=== PATIENT | female | born 1955 | race Two or more races ===

== ENCOUNTER 2017-10-16 08:06 | Emergency (ER) | payer BC, OTHER ==
[2017-10-16 08:13] VITALS: BP 162/95; PULSE 84; TEMP 97.4; BMI 25.4
[2017-10-16] MEDS ORDERED: CYCLOBENZAPRINE HCL 10 MG TABLET (FP) PO ONE (08:47)
--- NOTE | 2017-10-16 09:11 | PDOC ---
History of Present Illness - General Chief Complaint: Pain, Acute Stated Complaint: BOTH HIPS AND KNEES HURT Time Seen by Provider: 10/16/17 08:21 History Source: Patient Exam Limitations: No Limitations - History of Present Illness Initial Comments: 10/16/17 09:01 62-year-old female left-handed dominant with past medical history of hypertension presents with body aches. 3 days ago, had a mechanical fall landed on her right hand. At that time, had no pain. She was helped up and the patient was able to her. Since then, the patient on the following day had diffuse body aches. Particularly her bilateral knees and her lower back and right fourth finger at the PIP joint was in discomfort. Denies any numbness or weakness. She had taken 800 mg of ibuprofen this morning and came into the ED. Past History - Past Medical History Allergies/Adverse Reactions: Allergies Allergy/AdvReac Type Severity Reaction Status Date / Time No Known Drug Allergies Allergy Verified 10/16/17 08:08 Home Medications: Ambulatory Orders Cyclobenzaprine HCl [Flexeril -] 10 mg PO TID PRN #21 tablet 10/16/17 Naproxen [Naprosyn -] 500 mg PO BID PRN #20 tablet 10/16/17 Anemia: No Asthma: Yes (SEASONAL-STABLE NO MEDS) Cancer: No Cardiac Disorders: No CVA: No COPD: No CHF: No Dementia: No Diabetes: No GI Disorders: No Disorders: Yes (HYDRO NEPHROSIS) HTN: Yes (DX 2004) Hypercholesterolemia: No Liver Disease: No Seizures: No Thyroid Disease: No - Surgical History Abdominal Surgery: No Appendectomy: No Cardiac Surgery: No Cholecystectomy: No Lung Surgery: No Neurologic Surgery: No Orthopedic Surgery: No - Suicide/Smoking/Psychosocial Hx Smoking Status: Yes Smoking History: Never smoked Have you smoked in the past 12 months: No Number of Cigarettes Smoked Daily: 0 If you are a former smoker, when did you quit?: QUIT AT AGE 26 Information on smoking cessation initiated: No Hx Alcohol Use: No Drug/Substance Use Hx: No Substance Use Type: None Hx Substance Use Treatment: No Review of Systems - Review of Systems Able to Perform ROS?: Yes Comments:: 10/16/17 09:02 GENERAL/CONSTITUTIONAL: No fever, weakness. HEAD, EYES, EARS, NOSE AND THROAT: No change in vision. No ear pain or discharge. No sore throat. CARDIOVASCULAR: No chest pain or shortness of breath. RESPIRATORY: No cough, wheezing, or hemoptysis. GASTROINTESTINAL: No abdominal pain, nausea, vomiting, diarrhea, or decreased PO intolerance. GENITOURINARY: No dysuria, frequency, or change in urination. MUSCULOSKELETAL: =+bilateral knee pain, lower back pain, right 4th finger pain SKIN: No rash NEUROLOGIC: No headache, vertigo, loss of consciousness, or change in strength/ sensation. ENDOCRINE: No increased thirst. No abnormal weight change. HEMATOLOGIC/LYMPHATIC: No anemia, easy bleeding, or history of blood clots. ALLERGIC/IMMUNOLOGIC: No hives or skin allergy. *Physical Exam - Vital Signs Last Vital Signs Temp Pulse Resp BP Pulse Ox 97.4 F L 84 18 162/95 100 10/16/17 08:07 10/16/17 08:07 10/16/17 08:07 10/16/17 08:07 10/16/17 08:07 - Physical Exam Comments: 10/16/17 09:05 GENERAL: Awake, alert, and fully oriented, in no acute distress. HEAD: No signs of trauma EYES: PERRLA, EOMI, sclera anicteric, conjunctiva clear ENT: Auricles normal inspection, hearing grossly normal, nares patent, oropharynx clear without exudates. NECK: Normal ROM, supple, no lymphadenopathy, JVD, or masses LUNGS: Breath sounds equal, clear to auscultation bilaterally. No wheezes, and no crackles HEART: Regular rate and rhythm, normal S1 and S2, no murmurs, rubs or gallops ABDOMEN: Soft, nontender, normoactive bowel sounds. No guarding, no rebound. No masses EXTREMITIES: Normal range of motion, no edema. Ambulatory without difficulty. FROM Bilateral knee, hips, elbows, knees. 2+ distal pulses (radial). TTP right 4th digit PIP joint. Able to flex and extend all digits (including R 4th). Diffuse lower back discomfort (left and right). No bony tenderness on lumbar spine. Mild TTP anterior bilateral knees but able to ambulate. NEUROLOGICAL: Cranial nerves II through XII grossly intact. Normal speech, normal gait. Sensation intact throughout. SKIN: Warm, Dry, normal turgor, no rashes or lesions noted. ED Treatment Course - RADIOLOGY Radiology Studies Ordered: Category Date Time Status FINGER(S) RIGHT [RAD] Stat Radiology 10/16/17 08:46 Ordered KNEE 3 POS-LEFT [RAD] Stat Radiology 10/16/17 08:46 Ordered KNEE 3 POS-RIGHT [RAD] Stat Radiology 10/16/17 08:46 Ordered SPINE-LUMBAR SACRAL [RAD] Stat Radiology 10/16/17 08:46 Ordered Medical Decision Making - Medical Decision Making 10/16/17 09:12 Vital Signs Temp Pulse Resp BP Pulse Ox 97.4 F L 84 18 162/95 100 10/16/17 08:07 10/16/17 08:07 10/16/17 08:07 10/16/17 08:07 10/16/17 08:07 Will f/o fractures with lumbar spine xray, R 4th finger xray, bilateral knees. Though I suspect more likely to be contusions. Neurovascularly intact. Supportive care. 10/16/17 10:07 Xrays reviewed by me, pending official radiology read. NO fractures appreciated. Patient is ambulatory. MSK pain Follow up with PMD I discussed the physical exam findings, ancillary test results and final diagnoses with the patient. I answered all of the patient's questions. The patient was satisfied with the care received and felt comfortable with the discharge plan and treatment plan. The patient will call their primary care physician within 24 hours to arrange follow-up and will return to the Emergency Department with any new, persistant or worsening symptoms. *DC/Admit/Observation/Transfer Diagnosis at time of Disposition: Fall Qualifiers: Encounter type: initial encounter Qualified Code(s): W19.XXXA - Unspecified fall, initial encounter - Discharge Dispostion Disposition: HOME Condition at time of disposition: Stable - Prescriptions Prescriptions: Cyclobenzaprine HCl [Flexeril -] 10 mg PO TID PRN #21 tablet PRN Reason: Muscle Relaxant Naproxen [Naprosyn -] 500 mg PO BID PRN #20 tablet PRN Reason: Pain - Referrals Referrals: Dimas Grayson MD [Primary Care Provider] - - Patient Instructions Printed Discharge Instructions: How to Prevent Falls, DI for Musculoskeletal Pain Additional Instructions: Please take 500 mg naproxen every 12 hours as needed for pain. Take 10 mg flexeril every 8 hours as needed for muscle spasm. However, this medication may make you drowsy. Please do not drink or drive. Follow up with your primary care physician. - Post Discharge Activity Forms/Work/School Notes: Back to Work
== END 2017-10-16 10:17 | disposition home or self-care (01) ==
LOC: FER 08:06
DX: M25.541 Pain in joints of right hand (principal); M25.561 Pain in right knee; M25.562 Pain in left knee; M54.5 Low back pain; I10 Essential (primary) hypertension; J45.909 Unspecified asthma, uncomplicated; W19.XXXA Unspecified fall, initial encounter; Y93.9 Activity, unspecified; Y92.9 Unspecified place or not applicable
CPT/HCPCS: 72100-TC; 73140-TC-RT; 73562-TC-LT; 73562-TC-RT; 99281-25

== ENCOUNTER 2017-10-23 07:59 | Emergency (ER) | payer OTHER ==
[2017-10-23 08:03] VITALS: BP 141/72; PULSE 85; TEMP 98.1; BMI 27.1
--- NOTE | 2017-10-23 08:26 | PDOC ---
History of Present Illness - General Chief Complaint: Pain, Acute Stated Complaint: right knee pain Time Seen by Provider: 10/23/17 08:02 History Source: Patient Exam Limitations: No Limitations - History of Present Illness Initial Comments: 10/23/17 08:21 62-year-old female here today complaining of right knee pain. Patient was seen 1 week ago roughly for a fall at which time she had been complaining of low back and right knee pain. Was evaluated at that time with x-rays which were negative for any acute fracture. Patient states her back pain is improved however she has had worsening right knee pain. Pain is moderate and worse with walking or certain movements and weightbearing no associated swelling or effusion no ecchymosis no hip or ankle pain. Patient was not given a orthopedic referral and has not seen anybody since her last visit. Has been taking also relaxers and anti-inflammatories with minimal relief no recurrent injury Past History - Past Medical History Allergies/Adverse Reactions: Allergies Allergy/AdvReac Type Severity Reaction Status Date / Time No Known Drug Allergies Allergy Verified 10/23/17 07:59 Home Medications: Ambulatory Orders Cyclobenzaprine HCl [Flexeril -] 10 mg PO TID PRN #21 tablet 10/16/17 Naproxen [Naprosyn -] 500 mg PO BID PRN #20 tablet 10/16/17 Ibuprofen [Motrin -] 600 mg PO TID #90 tablet 10/23/17 Anemia: No Asthma: Yes (SEASONAL-STABLE NO MEDS) Cancer: No Cardiac Disorders: No CVA: No COPD: No CHF: No Dementia: No Diabetes: No GI Disorders: No Disorders: Yes (HYDRO NEPHROSIS) HTN: Yes (DX 2004) Hypercholesterolemia: No Liver Disease: No Seizures: No Thyroid Disease: No - Surgical History Abdominal Surgery: No Appendectomy: No Cardiac Surgery: No Cholecystectomy: No Lung Surgery: No Neurologic Surgery: No Orthopedic Surgery: No - Suicide/Smoking/Psychosocial Hx Smoking Status: Yes Smoking History: Never smoked Have you smoked in the past 12 months: No Number of Cigarettes Smoked Daily: 0 If you are a former smoker, when did you quit?: QUIT AT AGE 26 Hx Alcohol Use: No Drug/Substance Use Hx: No Substance Use Type: None Hx Substance Use Treatment: No Review of Systems - Review of Systems Constitutional: No: Chills, Diaphoresis, Night Sweats HEENTM: No: Eye Pain Respiratory: No: Cough, Orthopnea Cardiac (ROS): No: Chest Pain, Edema Musculoskeletal: Yes: Joint Pain Integumentary: Yes: Other. No: Bruising All Other Systems: Reviewed and Negative *Physical Exam - Vital Signs Last Vital Signs Temp Pulse Resp BP Pulse Ox 98.1 F 85 18 141/72 98 10/23/17 07:59 10/23/17 07:59 10/23/17 07:59 10/23/17 07:59 10/23/17 07:59 - Physical Exam Comments: 10/23/17 08:24 Awake alert no acute distress, lungs are clear bilaterally no wheezes no crackles. Cardiac exam demonstrates regular heart rate and rhythm no murmurs rubs or gallops. Abdomen is soft nontender. Extremities the right knee has full range of motion. Minimal infrapatellar medial tenderness to palpation. No associated effusion and no laxity. Negative anterior posterior drawer negative varus and valgus stress test. Ankle/hip FROM, NT. Distally neurovascularly intact. Skin is warm and dry no ecchymosis Medical Decision Making - Medical Decision Making 10/23/17 08:25 Status post right injury knee injury with persistent pain in the right knee. Negative x-rays. Plan knee immobilizer continued NSAIDs and orthopedic referral for outpatient follow-up *DC/Admit/Observation/Transfer Diagnosis at time of Disposition: Knee injury - Discharge Dispostion Disposition: HOME Condition at time of disposition: Stable Admit: No - Prescriptions Prescriptions: Ibuprofen [Motrin -] 600 mg PO TID #90 tablet - Referrals Referrals: Arcenio Mckeon MD [Staff Physician] - - Patient Instructions Printed Discharge Instructions: Knee Sprain Additional Instructions: You can wear knee immobilizer comfort. Ice and elevate in the evening for 20 minutes to reduce swelling and pain. Take Motrin 600 mg every 8 hours as needed for pain. He should follow-up with orthopedics, see referral information for Dr. Mckeon. Please call to schedule a follow-up appointment. Return for any problems or concerns your x-rays on your last visit were negative for any acute bony injury - Post Discharge Activity Forms/Work/School Notes: Back to Work
[2017-10-23] MEDS ORDERED: IBUPROFEN 600 MG TABLET (FP) PO ONE ×2 (08:28→08:32)
== END 2017-10-23 08:40 | disposition home or self-care (01) ==
LOC: FER 07:59
PROC: 2W3QX1Z Immobilization of Right Lower Leg using Splint (ICD-10-PCS; principal; 2017-10-23)
DX: S89.91XA Unspecified injury of right lower leg, initial encounter (principal); X58.XXXA Exposure to other specified factors, initial encounter; Y93.9 Activity, unspecified; Y92.9 Unspecified place or not applicable; J45.998 Other asthma; I10 Essential (primary) hypertension
CPT/HCPCS: 99282-25

== ENCOUNTER 2019-04-01 08:12 | Emergency (ER) | payer BC ==
--- NOTE | 2019-04-01 08:14 | PDOC ---
History of Present Illness - General Chief Complaint: Pain Stated Complaint: RIGHT FLANK PAIN,LOWER BACK PAIN AND CHEST PAIN. Time Seen by Provider: 04/01/19 08:14 - History of Present Illness Initial Comments: 04/01/19 08:30 63yo female with hx of constipation, hydronephrosis, hx of ureteral stents ( none present), uti, and diverticular disease presents with multiple complaints. Pt states she has a hx of hydronephrosis to L side. States x 1 month she has developed R flank pain. States she feels a burning sensation in the AM and urgency with urination - denies dysuria. States after urinating in the AM the burning sensation resolves. Pt denies hematuria. Pt states she has been taking motrin 800mg for the past month. Pt states on monday she felt constipated - took 2 pills as a laxative and then yesterday had 20 soft bowel movements. Pt states she has felt cramping in her abd since. Pt denies n/v. C/o a burning sensation today in her abd. Pt also c/o L chest pain - has chest wall ttp, no rashes, no cough, no sob. Pt appears very anxious upon arrival. Pt denies trauma to her back. Pt currently follows with Dr. Navarro (GI), Dr. Singletary (PMD), and has an appt with urolois on April 12. PMHx: hydronephrosis, htn, constipation, diverticulitis Pshx: colonoscopy, ureteral stents All: NKDA Past History - Past Medical History Allergies/Adverse Reactions: Allergies Allergy/AdvReac Type Severity Reaction Status Date / Time No Known Drug Allergies Allergy Verified 04/01/19 08:14 Home Medications: Ambulatory Orders Ibuprofen [Motrin -] 800 mg PO PRN PRN 04/01/19 Anemia: No Asthma: Yes (SEASONAL-STABLE NO MEDS) Cancer: No Cardiac Disorders: No CVA: No COPD: No CHF: No Dementia: No Diabetes: No GI Disorders: No Disorders: Yes (HYDRO NEPHROSIS) HTN: Yes (DX 2004) Hypercholesterolemia: No Liver Disease: No Seizures: No Thyroid Disease: No - Surgical History Abdominal Surgery: No Appendectomy: No Cardiac Surgery: No Cholecystectomy: No Lung Surgery: No Neurologic Surgery: No Orthopedic Surgery: No - Suicide/Smoking/Psychosocial Hx Smoking Status: Yes Smoking History: Never smoked Have you smoked in the past 12 months: No Number of Cigarettes Smoked Daily: 0 If you are a former smoker, when did you quit?: QUIT AT AGE 26 Hx Alcohol Use: No Drug/Substance Use Hx: No Substance Use Type: None Hx Substance Use Treatment: No Review of Systems - Review of Systems Able to Perform ROS?: Yes Is the patient limited Luxem[place]ish proficient: No Constitutional: No: Chills, Fever HEENTM: No: Double Vision, Nose Pain, Nose Congestion, Throat Pain Respiratory: No: Cough, Shortness of Breath, Wheezing Cardiac (ROS): Yes: Chest Pain. No: Irregular Heart Rate, Palpitations, Chest Tightness ABD/GI: Yes: Diarrhea, Abdominal cramping. No: Nausea, Vomiting : Yes: Burning, Urgency, Other (flank pain). No: Dysuria, Hematuria Musculoskeletal: Yes: Back Pain Integumentary: No: Rash Neurological: No: Headache, Numbness, Paresthesia, Weakness All Other Systems: Reviewed and Negative *Physical Exam - Vital Signs 04/01/19 08:38 Selected Entries 04/01/19 08:13 Temperature 97.6 F Pulse Rate 88 Respiratory 18 Rate Blood Pressure 189/102 H Blood Pressure 131 Mean O2 Sat by Pulse 100 Oximetry (%) Weight 58.967 kg - Physical Exam General Appearance: Yes: Nourished, Appropriately Dressed, Other (anxious) HEENT: positive: EOMI, Normal Voice Neck: positive: Supple. negative: Rigid, Tender midline Respiratory/Chest: positive: Chest Tender (L anterior chest ttp), Lungs Clear, Normal Breath Sounds. negative: Respiratory Distress Cardiovascular: positive: Regular Rhythm, Regular Rate, S1, S2. negative: Edema Gastrointestinal/Abdominal: positive: Normal Bowel Sounds, Soft, Tenderness ( epigastric, ruq, rlq ttp - no rebound or guarding). negative: Guarding, Rebound Musculoskeletal: positive: CVA Tenderness (b/l). negative: Vertebral Tenderness Extremity: positive: Normal Capillary Refill, Normal Inspection. negative: Swelling, Calf Tenderness Integumentary: positive: Normal Color, Dry, Warm. negative: Rash Neurologic: positive: Fully Oriented, Alert, Normal Mood/Affect, Other ( ambulatory in the ED with a steady gait) Heart Score/ECG Review - History History: Slightly suspicious - Electrocardiogram EKG: Normal - Age Age: >/= 65 - Risk Factors Risk Factors Heart Score: Yes Hx Hypertension Based on the list above the patient has:: 1-2 risk factors - ECG Intrepretation Comment:: 04/01/19 08:40 sinus at 83, nl axis, nl interval, q waves inferior leads which are age indeterminate, no acute st/t wave findings, t wave flattening diffusely 04/01/19 08:41 ekg is unchanged from 2016 ED Treatment Course - LABORATORY CBC & Chemistry Diagram: 04/01/19 08:48 04/01/19 08:48 Medical Decision Making - Medical Decision Making 04/01/19 08:41 a/p: 63yo female with R flank pain, R abd pain, urgency, and L chest pain -hx of HTN - bp uncontrolled in the ED: will send trop, ekg, cxr - low suspicion for acs - suspect gerd and epigastric pain from motrin use for the past month -pepcid, GI cocktail -R flank pain - R cva ttp which is new, urgency with urination , hx of hydronephrosis -labs, ua, ucx, ct abd/pelvis -pt has follow-up with urogyn scheduled for 04/12 -tylenol for pain -concern for worsening hydro on R vs uti vs pyelo -also has hx of diverticular disease ? r sided diverticular disease 04/01/19 08:[address] shows sigmoid diverticulosis prior ct shows L upj stenosis causing chronic mild L hydro prior renal ultrasound shows L>R mild hydro 04/01/19 09:35 pt states feeling better abd pain resolved no burning sensation after medication labs reviewed, trop and ua pending pt to ct imaging 04/01/19 09:36 cxr clear 04/01/19 10:41 discussed labs and imaging pt states feeling better discussed stone at uvj discussed lab results, lipase pending, will call with results, but no signs of acute pancreatitis on imaging discussed follow up with Dr. Navarro, urogyn and dr. singletary discussed ekg, cxr, trop pt stable for dc to home 04/01/19 10:47 lipase is negative pt stable for dc to home *DC/Admit/Observation/Transfer Diagnosis at time of Disposition: Right flank pain, Hydronephrosis - Discharge Dispostion Disposition: HOME Condition at time of disposition: Stable Decision to Admit order: No - Referrals Referrals: Dimas Singletary MD [Primary Care Provider] - - Patient Instructions Printed Discharge Instructions: DI for Flank Pain Additional Instructions: Please take all medications as prescribed. Please call your GI specialist and Dr. Navarro for follow up on your constipation a few days ago. Please drink plenty of water. Please follow-up in the next 1-[address] Singletary. Please keep your appointment with the uro-sap solution manager consultant for next week at [facility]. Please return to the ED with any further concerns or complaints. Please eat plenty of high fiber foods. - Post Discharge Activity Forms/Work/School Notes: Back to Work
[2019-04-01 08:19] VITALS: TEMP 97.6; BMI 23.8
[2019-04-01] MEDS ORDERED: MAG HYDROX/AL HYDROX/SIMETH 30 ML UNIT-DOSE CUP PO ONE (08:29)
[2019-04-01] MEDS ORDERED: FAMOTIDINE 20 MG/50 ML IVPB 20 MG/50 ML MG IVPB ONE ×2 (08:29→08:53)
[2019-04-01] MEDS ORDERED: ONDANSETRON 4 MG/2 ML VIAL IVPUSH ONE (08:29)
[2019-04-01] MEDS ORDERED: ACETAMINOPHEN 1000 MG/100 ML VIAL (NON FORMULARY) IVPB ONE (08:29)
[2019-04-01] MEDS ORDERED: MAG HYDROX/AL HYDROX/SIMETH 30 ML UNIT-DOSE CUP ONE (08:53)
[2019-04-01] MEDS ORDERED: ONDANSETRON 4 MG/2 ML VIAL ONE (08:53)
[2019-04-01 09:10] LABS: BASO % 0.6 % (0-2.0); EOS % 1.2 % (0-4.5); HEMATOCRIT 40.4 % (32.4-45.2); HEMOGLOBIN 13.1 GM/dl (10.7-15.3); LYMPH % 22.6 % (8-40); MCHC 32.3 g/dl (32.0-36.0); MEAN CELL VOLUME 95.8 fl (80-96); MEAN PLT VOLUME 9.4 fl (7.5-11.1); MONO % 5.6 % (3.8-10.2); PLATELET COUNT 225 K/MM3 (134-434); RBC 4.22 M/mm3 (3.60-5.2); RDW 12.9 % (11.6-15.6); WHITE BLOOD COUNT 5.9 K/mm3 (4.0-10.8)
[2019-04-01 09:13] LABS: INR 1.13 (0.82-1.09); PROTHROMBIN TIME (PATIENT) 12.6 SEC (10.2-13.0)
[2019-04-01 09:21] LABS: ACTIVATED PTT 30.7 SECONDS (25.2-36.5)
[2019-04-01 09:22] LABS: ALBUMIN 4.1 g/dl (3.4-5.0); ALK PHOS 118 U/L (45-117); ANION GAP 12 MMOL/L (8-16); BILIRUBIN,TOTAL 0.5 mg/dl (0.2-1); BLOOD UREA NITROGEN 12 mg/dl (7-18); CALCIUM 9.3 mg/dl (8.5-10); CHLORIDE 103 mmol/L (98-107); CO2 23 mmol/L (21-32); CREATININE 0.6 mg/dl (0.55-1.3); GLUCOSE,RANDOM 103 mg/dl (74-106); MAGNESIUM 1.9 mg/dL (1.8-2.4); POTASSIUM 3.8 mmol/L (3.5-5.1); SGOT/AST 21 U/L (15-37); SGPT/ALT 12 U/L (13-61); SODIUM 138 mmol/L (136-145); TOT PROT 6.7 g/dl (6.4-8.2)
[2019-04-01] MEDS ORDERED: SODIUM CHLORIDE 0.9% 1000 ML INFUS.BAG IV ONE (09:35)
[2019-04-01 09:36] VITALS: BP 122/79; PULSE 70
--- NOTE | 2019-04-01 10:04 | EKG ---
Test Reason : Blood Pressure : / mmHG Vent. Rate : 083 BPM Atrial Rate : 083 BPM P-R Int : 180 ms QRS Dur : 094 ms QT Int : 376 ms P-R-T Axes : 053 -15 052 degrees QTc Int : 441 ms NORMAL SINUS RHYTHM POSSIBLE LEFT ATRIAL ENLARGEMENT INFERIOR INFARCT , AGE UNDETERMINED ABNORMAL ECG WHEN COMPARED WITH ECG OF 03-OCT-2005 10:19, VENT. RATE HAS DECREASED T WAVE VARIATION Confirmed by SHIRA GILES, MAGDALENO ([id number]) on 04/01/2019 10:04:45 AM Referred By: Confirmed By:MAGDALENO SILVA MD
[2019-04-01 10:12] LABS: EPITHELIAL CELLS 1+ /hpf
[2019-04-01 10:44] LABS: LIPASE 114 U/L (73-393)
== END 2019-04-01 10:59 | disposition home or self-care (01) ==
LOC: FER 08:12 → SUPCPDRO 08:12 → FER 10:59
PROC: 3E033NZ Introduction of Analgesics, Hypnotics, Sedatives into Peripheral Vein, Percutaneous Approach (ICD-10-PCS; principal; 2019-04-01)
PROC: 3E0337Z Introduction of Electrolytic and Water Balance Substance into Peripheral Vein, Percutaneous Approach (ICD-10-PCS; 2019-04-01)
PROC: 3E033GC Introduction of Other Therapeutic Substance into Peripheral Vein, Percutaneous Approach (ICD-10-PCS; 2019-04-01)
DX: N13.30 Unspecified hydronephrosis (principal); R10.9 Unspecified abdominal pain; I10 Essential (primary) hypertension
CPT/HCPCS: 36415; 71046-TC-FY; 74177-TC; 80053; 81003; 81015; 82550; 83690; 83735; 84484; 85025; 85610; 85730; 87086; 93005; 99285-25; J0131; J7030

== ENCOUNTER 2020-10-13 15:24 | Emergency (ER) | payer BC | END 2020-10-13 15:40 | disposition home or self-care (01) | LOC: JVIRT 15:24 | DX: Z03.818 Encounter for observation for suspected exposure to other biological agents ruled out (principal) | CPT/HCPCS: C9803; Q3014-GT; U0003 ==

== ENCOUNTER 2020-10-20 13:07 | Emergency (ER) | payer BC | END 2020-10-20 14:13 | disposition home or self-care (01) | LOC: JVIRT 13:07 | DX: Z11.59 Encounter for screening for other viral diseases (principal) | CPT/HCPCS: C9803; Q3014-GT; U0003 ==

== ENCOUNTER 2021-02-20 08:29 | Emergency (ER) | payer BC ==
[2021-02-20 08:37] VITALS: TEMP 99; BMI 26.4
[2021-02-20] MEDS ORDERED: SODIUM CHLORIDE 1,000 ML IV STA ×2 (08:52→11:54)
[2021-02-20] MEDS ORDERED: ACETAMINOPHEN 1000 MG/100 ML VIAL (NON FORMULARY) IVPB ONE (08:52)
[2021-02-20] MEDS ORDERED: ACETAMINOPHEN INJECTION 100 ML IVPB ONE (09:04)
[2021-02-20] MEDS ORDERED: CEFTRIAXONE 1,000 MG in DEXTROSE 5%-WATER - 50 ML IVPB ONE (09:12)
[2021-02-20 09:13] LABS: BASO % 2.8 % (0-2.0); EOS % 1.7 % (0-4.5); HEMATOCRIT 40.7 % (32.4-45.2); HEMOGLOBIN 13.5 GM/dl (10.7-15.3); LYMPH % 20.5 % (8-40); MCH 31.4 pg (25.7-33.7); MCHC 33.2 g/dl (32.0-36.0); MEAN CELL VOLUME 94.6 fl (80-96); MEAN PLT VOLUME 9.2 fl (7.5-11.1); MONO % 8.2 % (3.8-10.2); NEUT % 66.8 % (42.8-82.8); PLATELET COUNT 222 K/MM3 (134-434); RBC 4.31 M/mm3 (3.60-5.2); RDW 13.6 % (11.6-15.6); WHITE BLOOD COUNT 5.9 K/mm3 (4.0-10.8)
[2021-02-20] MEDS ORDERED: cefTRIAXone SODIUM 1 GM VIAL ONE (09:18)
[2021-02-20 09:19] LABS: EPITHELIAL CELLS FEW /hpf
[2021-02-20 09:23] LABS: ALBUMIN 3.8 g/dl (3.4-5.0); BILIRUBIN,TOTAL 0.5 mg/dl (0.2-1); CALCIUM 9.2 mg/dl (8.5-10); CREATININE 0.7 mg/dl (0.55-1.3); TOT PROT 6.6 g/dl (6.4-8.2)
[2021-02-20 14:00] VITALS: BP 130/76; PULSE 76
== END 2021-02-20 14:13 | disposition home or self-care (01) ==
LOC: FER 08:29
PROC: 3E033GC Introduction of Other Therapeutic Substance into Peripheral Vein, Percutaneous Approach (ICD-10-PCS; principal; 2021-02-20)
PROC: 3E0337Z Introduction of Electrolytic and Water Balance Substance into Peripheral Vein, Percutaneous Approach (ICD-10-PCS; principal; 2021-02-20)
DX: N30.00 Acute cystitis without hematuria (principal)
CPT/HCPCS: 36415; 74177-TC; 76775-TC; 80053; 81003; 81015; 84484; 85025; 87086; 93005; 99285-25; J0131; Q9967

== ENCOUNTER 2021-07-26 15:45 | Emergency (ER) | payer BC ==
[2021-07-26 15:55] VITALS: TEMP 98.3; BMI 26.2
[2021-07-26] MEDS ORDERED: SODIUM CHLORIDE 0.9% 500 ML INFUS.BAG IV ONE (16:19)
[2021-07-26] MEDS ORDERED: ACETAMINOPHEN 1000 MG/100 ML VIAL (NON FORMULARY) IVPB ONE (16:19)
[2021-07-26] MEDS ORDERED: ACETAMINOPHEN INJECTION 100 ML IVPB ONE (16:52)
[2021-07-26 17:06] LABS: BASO % 4.3 % (0-2.0); EOS % 1.2 % (0-4.5); HEMATOCRIT 37.9 % (32.4-45.2); HEMOGLOBIN 12.5 GM/dl (10.7-15.3); MCH 30.5 pg (25.7-33.7); MEAN CELL VOLUME 92.7 fl (80-96); MEAN PLT VOLUME 9.3 fl (7.5-11.1); MONO % 5.8 % (3.8-10.2); NEUT % 63.7 % (42.8-82.8); PLATELET COUNT 247 10^3/uL (134-434); RBC 4.09 M/mm3 (3.60-5.2); RDW 12.9 % (11.6-15.6); WHITE BLOOD COUNT 6.6 K/mm3 (4.0-10.8)
[2021-07-26 17:15] LABS: ALBUMIN 3.7 g/dl (3.4-5.0); BILIRUBIN,TOTAL 0.4 mg/dl (0.2-1); CALCIUM 8.7 mg/dl (8.5-10); CREATININE 0.8 mg/dl (0.55-1.3); TOT PROT 6.5 g/dl (6.4-8.2)
[2021-07-26] MEDS ORDERED: CEFTRIAXONE 1 GM in DEXTROSE 5%-WATER - 100 ML IVPB ONE (17:24)
[2021-07-26] MEDS ORDERED: SODIUM CHLORIDE 1,000 ML IV STA (19:15)
[2021-07-26] MEDS ORDERED: KETOROLAC TROMETHAMINE 30 MG/1 ML VIAL IVPUSH ONE (19:15)
[2021-07-26] MEDS ORDERED: KETOROLAC TROMETHAMINE 30 MG/1 ML VIAL ONE (19:18)
[2021-07-26 21:05] VITALS: BP 127/98; PULSE 64
== END 2021-07-26 23:14 | disposition home or self-care (01) ==
LOC: FER 15:45
PROC: 3E03329 Introduction of Other Anti-infective into Peripheral Vein, Percutaneous Approach (ICD-10-PCS; principal; 2021-07-26)
PROC: 3E033NZ Introduction of Analgesics, Hypnotics, Sedatives into Peripheral Vein, Percutaneous Approach (ICD-10-PCS; 2021-07-26)
PROC: 3E0333Z Introduction of Anti-inflammatory into Peripheral Vein, Percutaneous Approach (ICD-10-PCS; 2021-07-26)
PROC: 3E0337Z Introduction of Electrolytic and Water Balance Substance into Peripheral Vein, Percutaneous Approach (ICD-10-PCS; 2021-07-26)
DX: R10.9 Unspecified abdominal pain (principal)
CPT/HCPCS: 36415; 74177-TC; 80053; 81003; 81015; 85025; 87086; 99285-25; J0131; Q9967

== ENCOUNTER 2021-08-19 10:26 | Emergency (ER) | payer BC ==
[2021-08-19 10:29] VITALS: BP 159/105; PULSE 95; TEMP 98.1; BMI 29.2
[2021-08-19] MEDS ORDERED: DIPHTH,PERTUSS(ACELL),TET 0.5 ML DISP.SYRIN IM ONE ×2 (10:41→10:58)
[2021-08-19] MEDS ORDERED: AMOX TR/POT CLAV 875MG/125MG TABLETS (FP) PO ONE (10:50)
[2021-08-19] MEDS ORDERED: AMOX TR/POT CLAV 875MG/125MG TABLETS (FP) ONE (10:58)
[2021-08-19] MEDS ORDERED: ACETAMINOPHEN 500 MG TABLET (FP) PO ONE (11:20)
[2021-08-19] MEDS ORDERED: ACETAMINOPHEN 325 MG TABLET (FP) ONE (11:20)
== END 2021-08-19 11:39 | disposition home or self-care (01) ==
LOC: FER 10:26
PROC: 3E0234Z Introduction of Serum, Toxoid and Vaccine into Muscle, Percutaneous Approach (ICD-10-PCS; principal; 2021-08-19)
DX: S51.851A Open bite of right forearm, initial encounter (principal); W50.3XXA Accidental bite by another person, initial encounter; Y92.211 Elementary school as the place of occurrence of the external cause
CPT/HCPCS: 90715; 99283-25

== ENCOUNTER 2021-12-07 12:10 | Emergency (ER) | payer BC ==
[2021-12-07 12:41] VITALS: BP 138/93; PULSE 96; TEMP 98.8; BMI 24.5
[2021-12-07] MEDS ORDERED: FAMOTIDINE 20 MG TABLET PO ONE (12:45)
[2021-12-07] MEDS ORDERED: ONDANSETRON *ODT* 4 MG TABLET SL ONE (12:45)
[2021-12-07] MEDS ORDERED: ACETAMINOPHEN 325 MG TABLET (FP) PO ONE (12:45)
[2021-12-07] MEDS ORDERED: FAMOTIDINE 20 MG TABLET ONE (12:56)
[2021-12-07] MEDS ORDERED: ACETAMINOPHEN 325 MG TABLET (FP) ONE (12:56)
[2021-12-07] MEDS ORDERED: ONDANSETRON *ODT* 4 MG TABLET ONE (12:56)
== END 2021-12-07 13:08 | disposition home or self-care (01) ==
LOC: FER 12:10
DX: U07.1 COVID-19 (principal)
CPT/HCPCS: 87804; 99283-25; C9803-CS; Q0162; U0003; U0005

== ENCOUNTER 2022-04-30 15:03 | Emergency (ER) | payer BC, OTHER ==
[2022-04-30 15:22] VITALS: TEMP 98.3; BMI 24.5
[2022-04-30] MEDS ORDERED: SODIUM CHLORIDE 500 ML IV STA (16:01)
[2022-04-30] MEDS ORDERED: FAMOTIDINE 20 MG/50 ML IVPB 20 MG/50 ML MG IVPB ONE ×2 (16:01→16:17)
[2022-04-30 16:42] LABS: INR 1.05 (0.83-1.09); PROTHROMBIN TIME (PATIENT) 12.1 SEC (9.7-13.0)
[2022-04-30 17:00] LABS: EPITHELIAL CELLS FEW /hpf
[2022-04-30 17:03] LABS: HEMATOCRIT 36.9 % (32.4-45.2); HEMOGLOBIN 12.9 G/dL (10.7-15.3); MCH 32.7 pg (25.7-33.7); MCHC 34.8 g/dl (32.0-36.0); MEAN CELL VOLUME 93.8 fl (80-96); MEAN PLT VOLUME 8.7 fl (7.5-11.1); PLATELET COUNT 210.1 10^3/uL (134-434); RBC 3.93 10^6/uL (3.60-5.2); RDW 14.8 % (11.6-15.6); WHITE BLOOD COUNT 7.3 10^3/uL (4.0-10.8)
[2022-04-30 17:06] LABS: ALBUMIN 3.3 g/dl (3.4-5.0); BILIRUBIN,TOTAL 0.5 mg/dl (0.2-1); CALCIUM 8.7 mg/dl (8.5-10); CREATININE 0.7 mg/dl (0.55-1.3); TOT PROT 5.7 g/dl (6.4-8.2)
[2022-04-30 17:11] LABS: PLATELET ESTIMATE ADEQUATE
[2022-04-30] MEDS ORDERED: ACETAMINOPHEN 1000 MG/100 ML BAG IVPB ONE (18:22)
[2022-04-30] MEDS ORDERED: ACETAMINOPHEN INJECTION 100 ML IVPB ONE (18:32)
[2022-04-30] MEDS ORDERED: SULFAMETHOXAZOLE/TRIMETHOPRIM 800MG/160MG D.S. TABLET PO ONE (18:56)
[2022-04-30 19:10] VITALS: BP 147/91; PULSE 68
[2022-04-30] MEDS ORDERED: SULFAMETHOXAZOLE/TRIMETHOPRIM 800MG/160MG D.S. TABLET ONE (19:10)
== END 2022-04-30 19:15 | disposition home or self-care (01) ==
LOC: FER 15:03
PROC: 3E0333Z Introduction of Anti-inflammatory into Peripheral Vein, Percutaneous Approach (ICD-10-PCS; principal; 2022-04-30)
PROC: 3E033GC Introduction of Other Therapeutic Substance into Peripheral Vein, Percutaneous Approach (ICD-10-PCS; 2022-04-30)
PROC: 3E0337Z Introduction of Electrolytic and Water Balance Substance into Peripheral Vein, Percutaneous Approach (ICD-10-PCS; 2022-04-30)
DX: N39.0 Urinary tract infection, site not specified (principal)
CPT/HCPCS: 36415; 70450-TC; 80053; 81003; 81015; 85025; 85610; 87086; 87186; 99284-25

== ENCOUNTER 2022-06-29 07:24 | Day surgery (SDC) | payer BC ==
[2022-06-27 16:23] VITALS: BMI 25.9
[2022-06-29] MEDS ORDERED: LIDOCAINE HCL/PF 2% SDV 5ML VIAL ONE (07:35)
[2022-06-29] MEDS ORDERED: PROPOFOL 80 ML ONE (07:35)
[2022-06-29 08:49] VITALS: RESP 16; TEMP 97.5
[2022-06-29 09:05] VITALS: BP 120/75; PULSE 73
== END 2022-06-29 09:45 | disposition home or self-care (01) ==
LOC: FASU-ENDO 07:24
PROVIDERS: ATTEND Internal Medicine Gastroenterology
PROC: 0DJD8ZZ Inspection of Lower Intestinal Tract, Via Natural or Artificial Opening Endoscopic (ICD-10-PCS; principal; 2022-06-29 08:18)
DX: Z12.11 Encounter for screening for malignant neoplasm of colon (principal); K57.30 Diverticulosis of large intestine without perforation or abscess without bleeding

== ENCOUNTER 2022-07-11 06:45 | Day surgery (SDC) | payer BC ==
[2022-06-29 16:01] VITALS: BMI 25.9
[2022-07-11] MEDS ORDERED: TROPICAMIDE 1% OPHTH SOLN 15 ML BOTTLE ONE (06:50)
[2022-07-11] MEDS: OFLOXACIN 0.3% OPHTHALMIC SOLUTION 5 ML BOTTLE OS SCH ×3 (07:05→07:15)
[2022-07-11] MEDS: TROPICAMIDE 1% OPHTH SOLN 15 ML BOTTLE OS SCH ×3 (07:05→07:15)
[2022-07-11] MEDS: KETOROLAC TROMETHAMINE 0.5% EYE DROP 1 DROP DROPS OS SCH ×3 (07:05→07:15)
[2022-07-11] MEDS: PHENYLEPHRINE 2.5% OPHTH SOLN 15 ML BOTTLE OS SCH ×3 (07:05→07:15)
[2022-07-11] MEDS: CYCLOPENTOLATE HCL 1% OPHTH SOLN 2 ML BOTTLE OS SCH ×3 (07:05→07:15)
[2022-07-11 07:10] VITALS: RESP 18
[2022-07-11] MEDS ORDERED: MIDAZOLAM HCL 2 MG/2 ML SINGLE DOSE VIAL ONE (07:15)
[2022-07-11] MEDS ORDERED: TETRACAINE 0.5% OPHTH SOLN 2 ML BOTTLE ONE (07:23)
[2022-07-11] MEDS ORDERED: BACITRACIN/POLYMYXIN OPH OINT 3.5 GM TUBE ONE (07:23)
[2022-07-11] MEDS ORDERED: BETAXOLOL HCL 0.25% OPHTHALMIC 10 ML DROPSBTL ONE (07:23)
[2022-07-11] MEDS ORDERED: EPI-SHUGARCAINE (EPINEPHRINE 0.025% & LIDOCAINE-PF 0.75%) 4ML ONE (07:23)
[2022-07-11] MEDS ORDERED: ONDANSETRON 4 MG/2 ML VIAL IVPUSH PRN (07:24)
[2022-07-11] MEDS ORDERED: BSS (NA/CA/MG/K) BALANCED SALT SOLUTION OPHTH SOLN 15 ML BOTTLE ONE (07:24)
[2022-07-11] MEDS ORDERED: ACETYLCHOLINE 1:100 INTRA-OCUL 20 MG/2 ML KIT ONE (07:24)
[2022-07-11] MEDS ORDERED: POVIDONE-IODINE 5% OPHTHALMIC PREP 30 ML SOLUTION ONE (07:24)
[2022-07-11] MEDS ORDERED: NEO/POLYMYX B SULF/DEXAMETH OPHTHALMIC 5ML BOTTLE ONE (07:24)
[2022-07-11] MEDS ORDERED: LACTATED RINGERS SOLUTION 1,000 ML IV SCH (07:30)
[2022-07-11] MEDS ORDERED: EPINEPHrine/PF 1 MG/1 ML (1:1,000) AMPULE ONE (07:31)
[2022-07-11] MEDS ORDERED: ACETAMINOPHEN 325 MG TABLET (FP) PO PRN (08:34)
[2022-07-11 08:41] VITALS: BP 134/74; TEMP 97.8
[2022-07-11 09:18] VITALS: PULSE 60
== END 2022-07-11 09:35 | disposition home or self-care (01) ==
LOC: FASU 06:45
PROVIDERS: ATTEND Ophthalmology
PROC: 08RK3JZ Replacement of Left Lens with Synthetic Substitute, Percutaneous Approach (ICD-10-PCS; principal; 2022-07-11 08:13)
DX: H25.12 Age-related nuclear cataract, left eye (principal)
CPT/HCPCS: 66984; V2632

== ENCOUNTER 2022-08-08 06:16 | Day surgery (SDC) | payer BC ==
[2022-08-04 15:49] VITALS: BMI 26.0
[2022-08-08] MEDS ORDERED: TROPICAMIDE 1% OPHTH SOLN 15 ML BOTTLE ONE (06:36)
[2022-08-08] MEDS: OFLOXACIN 0.3% OPHTHALMIC SOLUTION 5 ML BOTTLE OD SCH ×3 (06:50→07:00)
[2022-08-08] MEDS: PHENYLEPHRINE 2.5% OPHTH SOLN 15 ML BOTTLE OD SCH ×3 (06:50→07:00)
[2022-08-08] MEDS: KETOROLAC TROMETHAMINE 0.5% EYE DROP 1 DROP DROPS OD SCH ×3 (06:50→07:00)
[2022-08-08] MEDS: CYCLOPENTOLATE HCL 1% OPHTH SOLN 2 ML BOTTLE OD SCH ×3 (06:50→07:00)
[2022-08-08] MEDS: TROPICAMIDE 1% OPHTH SOLN 15 ML BOTTLE OD SCH ×3 (06:50→07:00)
[2022-08-08 06:56] VITALS: TEMP 97.8
[2022-08-08] MEDS ORDERED: BSS (NA/CA/MG/K) BALANCED SALT SOLUTION OPHTH SOLN 15 ML BOTTLE ONE (07:23)
[2022-08-08] MEDS ORDERED: EPI-SHUGARCAINE (EPINEPHRINE 0.025% & LIDOCAINE-PF 0.75%) 4ML ONE (07:23)
[2022-08-08] MEDS ORDERED: PHENYLEPHRINE/KETOROLAC 4 ML VIAL IO ONE (07:23)
[2022-08-08] MEDS ORDERED: EPINEPHrine/PF 1 MG/1 ML (1:1,000) AMPULE ONE (07:23)
[2022-08-08] MEDS ORDERED: TETRACAINE 0.5% OPHTH SOLN 2 ML BOTTLE ONE (07:23)
[2022-08-08] MEDS ORDERED: POVIDONE-IODINE 5% OPHTHALMIC PREP 30 ML SOLUTION ONE (07:23)
[2022-08-08] MEDS ORDERED: ACETYLCHOLINE 1:100 INTRA-OCUL 20 MG/2 ML KIT ONE (07:23)
[2022-08-08] MEDS ORDERED: NEO/POLYMYX B SULF/DEXAMETH OPHTHALMIC 5ML BOTTLE ONE (07:23)
[2022-08-08] MEDS ORDERED: BETAXOLOL HCL 0.25% OPHTHALMIC 10 ML DROPSBTL ONE (07:23)
[2022-08-08] MEDS ORDERED: BACITRACIN/POLYMYXIN OPH OINT 3.5 GM TUBE ONE (07:23)
[2022-08-08] MEDS ORDERED: MIDAZOLAM HCL 2 MG/2 ML SINGLE DOSE VIAL ONE (08:03)
[2022-08-08] MEDS ORDERED: ACETAMINOPHEN 325 MG TABLET (FP) PO PRN (08:32)
[2022-08-08] MEDS ORDERED: ACETAMINOPHEN 325 MG TABLET (FP) ONE (09:06)
[2022-08-08 17:10] VITALS: BP 130/70; PULSE 62; RESP 18
== END 2022-08-08 09:25 | disposition home or self-care (01) ==
LOC: FASU 06:16
PROVIDERS: ATTEND Ophthalmology
PROC: 08RJ3JZ Replacement of Right Lens with Synthetic Substitute, Percutaneous Approach (ICD-10-PCS; principal; 2022-08-08 08:11)
DX: H25.11 Age-related nuclear cataract, right eye (principal)
CPT/HCPCS: 66984; V2632; J1097

== ENCOUNTER 2023-01-30 07:29 | Emergency (ER) | payer OTHER, BC ==
[2023-01-30 07:40] VITALS: BP 159/92; PULSE 76; RESP 18; TEMP 97.8; BMI 27.3
[2023-01-30] MEDS ORDERED: ACETAMINOPHEN 1000 MG/100 ML BAG IVPB ONE (08:12)
[2023-01-30] MEDS ORDERED: LACTATED RINGERS SOLUTION 1000 ML INFUS.BAG IV ONE (08:12)
[2023-01-30] MEDS ORDERED: MAG HYDROX/AL HYDROX/SIMETH 30 ML UNIT-DOSE CUP PO ONE (08:12)
[2023-01-30] MEDS ORDERED: FAMOTIDINE 20 MG/50 ML IVPB 20 MG/50 ML MG IVPB ONE ×2 (08:12→08:30)
[2023-01-30] MEDS ORDERED: ACETAMINOPHEN INJECTION 100 ML IVPB ONE (08:30)
[2023-01-30] MEDS ORDERED: MAG HYDROX/AL HYDROX/SIMETH 30 ML UNIT-DOSE CUP ONE (08:30)
[2023-01-30 09:04] LABS: ALBUMIN 3.6 g/dl (3.4-5.0); BILIRUBIN,TOTAL 0.7 mg/dl (0.2-1); CALCIUM 8.9 mg/dl (8.5-10); CREATININE 0.6 mg/dl (0.55-1.3); HEMATOCRIT 36.3 % (32.4-45.2); HEMOGLOBIN 12.6 G/dL (10.7-15.3); MCH 32.4 pg (25.7-33.7); MCHC 34.6 g/dl (32.0-36.0); MEAN CELL VOLUME 93.5 fl (80-96); MEAN PLT VOLUME 8.9 fl (7.5-11.1); PLATELET COUNT 207.6 10^3/uL (134-434); RBC 3.88 10^6/uL (3.60-5.2); RDW 14.3 % (11.6-15.6); TOT PROT 6.2 g/dl (6.4-8.2); WHITE BLOOD COUNT 4.6 10^3/uL (4.0-10.8)
[2023-01-30] MEDS ORDERED: KETOROLAC TROMETHAMINE 15 MG/ML VIAL IVPUSH ONE (09:16)
[2023-01-30] MEDS ORDERED: KETOROLAC TROMETHAMINE 15 MG/ML VIAL ONE (09:43)
[2023-01-30 10:00] LABS: CALCIUM OXALATE CRYSTALS MODERATE /hpf (NONE SEEN); EPITHELIAL CELLS FEW /hpf; URINE MUCUS 1+
[2023-01-30 10:02] LABS: PLATELET ESTIMATE ADEQUATE
== END 2023-01-30 11:35 | disposition home or self-care (01) ==
LOC: FER 07:29
PROC: 3E033GC Introduction of Other Therapeutic Substance into Peripheral Vein, Percutaneous Approach (ICD-10-PCS; principal; 2023-01-30)
DX: K57.92 Diverticulitis of intestine, part unspecified, without perforation or abscess without bleeding (principal)
CPT/HCPCS: 36415; 74177-TC; 76775-TC; 80053; 81003; 81015; 82272; 85027; 87086; 96365; 96375; 99285-25; Q9967

== ENCOUNTER 2023-03-02 17:36 | Emergency (ER) | payer OTHER, BC ==
[2023-03-02] MEDS ORDERED: ONDANSETRON 4 MG/2 ML VIAL IVPUSH ONE (18:23)
[2023-03-02] MEDS ORDERED: SODIUM CHLORIDE 0.9% 500 ML INFUS.BAG IV ONE (18:23)
[2023-03-02] MEDS ORDERED: morphine CARPU-JECT 4 MG/1 ML DISP.SYRIN IVPUSH ONE ×2 (18:23→23:53)
[2023-03-02 18:25] LABS: BILIRUBIN,TOTAL 0.5 mg/dl (0.2-1); CALCIUM 9.4 mg/dl (8.5-10); CREATININE 0.7 mg/dl (0.55-1.3); TOT PROT 7.1 g/dl (6.4-8.2)
[2023-03-02 18:28] VITALS: BP 137/87; PULSE 80; RESP 18; TEMP 98.1; BMI 27.3
[2023-03-02] MEDS ORDERED: ONDANSETRON 4 MG/2 ML VIAL ONE (18:34)
[2023-03-02] MEDS ORDERED: morphine SULFATE 4 MG/ML VIAL ONE (18:34)
[2023-03-02] MEDS ORDERED: ACETAMINOPHEN 1000 MG/100 ML BAG IVPB ONE (20:13)
[2023-03-02] MEDS ORDERED: ACETAMINOPHEN INJECTION 100 ML IVPB ONE (20:17)
[2023-03-02 20:28] LABS: BASO % 0.8 % (0-2.0); EOS % 1.9 % (0-4.5); HEMATOCRIT 37.9 % (32.4-45.2); HEMOGLOBIN 12.9 GM/dL (10.7-15.3); LYMPH % 37.9 % (8-40); MCH 31.1 pg (25.7-33.7); MCHC 34.1 g/dl (32.0-36.0); MEAN CELL VOLUME 91.3 fl (80-96); MEAN PLT VOLUME 10.1 fl (7.5-11.1); MONO % 11.2 % (3.8-10.2); NEUT % 48.2 % (42.8-82.8); PLATELET COUNT 252 10^3/uL (134-434); RBC 4.15 M/mm3 (3.60-5.2); RDW 14.5 % (11.6-15.6)
[2023-03-03] MEDS ORDERED: morphine SULFATE 4 MG/ML VIAL ONE (00:02)
== END 2023-03-03 02:57 | disposition home or self-care (01) ==
LOC: FER 17:36
PROC: 3E033NZ Introduction of Analgesics, Hypnotics, Sedatives into Peripheral Vein, Percutaneous Approach (ICD-10-PCS; principal; 2023-03-02)
PROC: 3E033GC Introduction of Other Therapeutic Substance into Peripheral Vein, Percutaneous Approach (ICD-10-PCS; 2023-03-02)
PROC: 3E033GC Introduction of Other Therapeutic Substance into Peripheral Vein, Percutaneous Approach (ICD-10-PCS; 2023-03-02)
PROC: 3E033GC Introduction of Other Therapeutic Substance into Peripheral Vein, Percutaneous Approach (ICD-10-PCS; 2023-03-03)
DX: R10.84 Generalized abdominal pain (principal); R51.9 Headache, unspecified; R42 Dizziness and giddiness; R11.0 Nausea; R07.9 Chest pain, unspecified
CPT/HCPCS: 36415; 71046-TC-FY; 74177-TC; 80053; 81003; 81015; 83690; 84484; 85025; 93005; 99285-25; Q9967

== ENCOUNTER 2023-11-05 12:02 | Inpatient (IN) | payer OTHER, BC ==
[2023-11-05 12:57] LABS: HEMATOCRIT 40.1 % (32.4-45.2); HEMOGLOBIN 13.3 G/dL (10.7-15.3); MCH 31.2 pg (25.7-33.7); MCHC 33.1 g/dl (32.0-36.0); MEAN CELL VOLUME 94.2 fl (80-96); MEAN PLT VOLUME 9.1 fl (7.5-11.1); PLATELET COUNT 243.8 10^3/uL (134-434); RBC 4.26 10^6/uL (3.60-5.2); RDW 14.4 % (11.6-15.6); WHITE BLOOD COUNT 6.9 10^3/uL (4.0-10.8)
[2023-11-05] MEDS ORDERED: ACETAMINOPHEN 1000 MG/100 ML BAG IVPB ONE (13:05)
[2023-11-05] MEDS ORDERED: ACETAMINOPHEN INJECTION 100 ML IVPB ONE (13:06)
[2023-11-05 13:14] LABS: INR 1.17 (0.83-1.09); PROTHROMBIN TIME (PATIENT) 13.5 SEC (9.7-13.0)
[2023-11-05 13:16] LABS: ALBUMIN 4.2 g/dl (3.4-5.0); BILIRUBIN,TOTAL 0.4 mg/dl (0.2-1); CALCIUM 9.6 mg/dl (8.5-10.1); CREATININE 0.6 mg/dl (0.6-1.3); POTASSIUM 3.4 mmol/L (3.5-5.1); TOT PROT 6.9 g/dl (6.4-8.2)
[2023-11-05 14:53] LABS: N-TERMINAL BNP 109.1 pg/ml (5-125)
[2023-11-05] MEDS ORDERED: morphine CARPU-JECT 4 MG/1 ML DISP.SYRIN IVPUSH ONE (15:20)
[2023-11-05] MEDS ORDERED: morphine SULFATE 4 MG/ML VIAL ONE (15:31)
[2023-11-05 16:53] VITALS: BMI 25.5
[2023-11-05] MEDS ORDERED: traMADol HCL 50 MG TABLET PO PRN (20:21)
[2023-11-05 20:58] LABS: MAGNESIUM 1.9 mg/dL (1.8-2.4); PHOSPHOROUS 3.3 (2.5-4.9)
[2023-11-05] MEDS ORDERED: POLYETHYLENE GLYCOL (HEALTHYLAX) 3350 17 GM PACKET PO PRN (21:12)
[2023-11-05] MEDS: MELATONIN 5 MG TABLETS PO PRN (21:34)
[2023-11-06] MEDS ORDERED: MELATONIN 5 MG TABLETS PO ONE (01:45)
[2023-11-06] MEDS ORDERED: ACETAMINOPHEN 1000 MG/100 ML BAG IVPB PRN (04:24)
[2023-11-06] MEDS ORDERED: ALBUTEROL SO4 HFA INHALER IH PRN (05:23)
[2023-11-06] MEDS: MECLIZINE HCL 12.5 MG TABLET PO PRN ×2 (06:43→14:38)
[2023-11-06] MEDS: AMOX TR/POT CLAV 875MG/125MG TABLETS (FP) PO SCH ×2 (08:16→17:42)
[2023-11-06 09:01] LABS: CREATININE 0.5 mg/dl (0.6-1.3); POTASSIUM 3.9 mmol/L (3.5-5.1)
[2023-11-06 09:59] LABS: BASO % 0.7 % (0-2.0); EOS % 2.4 % (0-4.5); HEMATOCRIT 37.2 % (32.4-45.2); HEMOGLOBIN 12.1 GM/dL (10.7-15.3); LYMPH % 24.3 % (8-40); MCH 30.7 pg (25.7-33.7); MCHC 32.6 g/dl (32.0-36.0); MEAN CELL VOLUME 94.2 fl (80-96); MEAN PLT VOLUME 9.3 fl (7.5-11.1); MONO % 6.6 % (3.8-10.2); PLATELET COUNT 248 10^3/uL (134-434); RBC 3.95 M/mm3 (3.60-5.2); RDW 14.1 % (11.6-15.6); WHITE BLOOD COUNT 5.6 K/mm3 (4.0-10.0)
[2023-11-06] MEDS ORDERED: FAMOTIDINE 40 MG TABLET PO SCH (10:00)
[2023-11-06] MEDS: FAMOTIDINE 20 MG TABLET PO SCH (10:12)
[2023-11-06] MEDS: ENOXAPARIN NA (PORCINE) 40 MG/0.4 ML DISP.SYRIN SQ SCH (10:12)
[2023-11-06] MEDS: LIDOCAINE 5% TOPICAL PATCH TP SCH (10:13)
[2023-11-06] MEDS: DOCUSATE SODIUM 100 MG CAPSULE (FP) PO PRN (10:28)
[2023-11-06] MEDS ORDERED: ROSUVASTATIN CA 40 MG TABLET PO ONE (12:19)
[2023-11-06] MEDS ORDERED: ROSUVASTATIN CA 20 MG TABLET PO ONE (14:00)
[2023-11-06] MEDS: ASPIRIN 81 MG CHEWABLE TABLETS PO SCH (14:31)
[2023-11-06 20:00] VITALS: RESP 18
[2023-11-06] MEDS ORDERED: LIDOCAINE PATCH REMOVAL MC SCH (22:00)
[2023-11-06] MEDS ORDERED: POLYETHYLENE GLYCOL (HEALTHYLAX) 3350 17 GM PACKET PO SCH (22:00)
[2023-11-06] MEDS: MELATONIN 5 MG TABLETS PO PRN (23:10)
[2023-11-07] MEDS ORDERED: ACETAMINOPHEN 325 MG TABLET (FP) PO PRN (07:38)
[2023-11-07] MEDS: ENOXAPARIN NA (PORCINE) 40 MG/0.4 ML DISP.SYRIN SQ SCH (09:16)
[2023-11-07] MEDS: LIDOCAINE 5% TOPICAL PATCH TP SCH (09:17)
[2023-11-07] MEDS: DOCUSATE SODIUM 100 MG CAPSULE (FP) PO PRN (09:17)
[2023-11-07] MEDS: ASPIRIN 81 MG CHEWABLE TABLETS PO SCH (09:17)
[2023-11-07] MEDS: FAMOTIDINE 20 MG TABLET PO SCH (09:18)
[2023-11-07] MEDS ORDERED: SODIUM PHOSPHATE/NA BIPHOS 133 ML ENEMA RC ONE (09:26)
[2023-11-07 09:27] VITALS: BP 139/71; PULSE 68; TEMP 98.6
[2023-11-07] MEDS ORDERED: FLUTICASONE PROP 0.05% 16 GM NASAL SPRAY NS SCH (10:00)
[2023-11-07] MEDS: MECLIZINE HCL 12.5 MG TABLET PO PRN (10:30)
== END 2023-11-07 14:00 | disposition home or self-care (01) | DRG 111 ==
LOC: FER 12:02 → FM/S 14:40 → OBSVTOIN 14:48
PROVIDERS: ADMIT Student in an Organized Health Care Education/Training Program; ATTEND Internal Medicine
DX: H81.10 Benign paroxysmal vertigo, unspecified ear (principal); I10 Essential (primary) hypertension; J45.909 Unspecified asthma, uncomplicated; K21.9 Gastro-esophageal reflux disease without esophagitis; K59.00 Constipation, unspecified; M54.2 Cervicalgia; N18.9 Chronic kidney disease, unspecified; R51.9 Headache, unspecified
CPT/HCPCS: 36415; 70450-TC; 70551-TC; 71045-TC-FY; 71275-TC; 74174-TC; 80048; 80053; 81003; 81015; 83036; 83605; 83690; 83735; 83880; 84100; 84439; 84443; 84484; 84550; 85025; 85027; 85610; 85730; 87086; 93005; 93306-TC; 97116-GP; 97162-GP; 99285-25; G0378; Q9967

== ENCOUNTER 2024-06-11 12:05 | Emergency (ER) | payer OTHER, BC ==
[2024-06-11 12:16] VITALS: BP 145/99; PULSE 82; RESP 18; TEMP 97.5; BMI 25.4
[2024-06-11] MEDS ORDERED: ACETAMINOPHEN INJECTION 100 ML IVPB ONE (12:53)
[2024-06-11] MEDS: ACETAMINOPHEN 1000 MG/100 ML BAG IVPB ONE (13:00)
[2024-06-11 13:05] LABS: INR 1.01 (0.83-1.09); PROTHROMBIN TIME (PATIENT) 11.5 SEC (9.7-13.0)
[2024-06-11 13:08] LABS: ACTIVATED PTT 34.4 SECONDS (25.2-36.5); HEMATOCRIT 38.6 % (32.4-45.2); HEMOGLOBIN 12.5 G/dL (10.7-15.3); MCH 31.3 pg (25.7-33.7); MCHC 32.5 g/dl (32.0-36.0); MEAN CELL VOLUME 96.3 fl (80-96); MEAN PLT VOLUME 9.7 fl (7.5-11.1); PLATELET COUNT 251.3 10^3/uL (134-434); RBC 4.01 10^6/uL (3.60-5.2); RDW 13.6 % (11.6-15.6); WHITE BLOOD COUNT 5.4 10^3/uL (4.0-10.8)
[2024-06-11 13:14] LABS: ALBUMIN 4.4 g/dl (3.4-5.0); BILIRUBIN,TOTAL 0.4 mg/dl (0.2-1); CALCIUM 9.8 mg/dl (8.5-10.1); CREATININE 0.8 mg/dl (0.6-1.3); MAGNESIUM 2.2 mg/dL (1.8-2.4); PHOSPHOROUS 3.6 (2.5-4.9); POTASSIUM 3.4 mmol/L (3.5-5.1); TOT PROT 7.1 g/dl (6.4-8.2)
[2024-06-11] MEDS ORDERED: POTASSIUM CHLORIDE ORAL LIQUID 20 MEQ/15 ML ONE (13:38)
[2024-06-11 13:49] LABS: PLATELET ESTIMATE ADEQUATE
[2024-06-11] MEDS: POTASSIUM CHLORIDE ORAL LIQUID 20 MEQ/15 ML PO ONE (13:56)
[2024-06-11] MEDS ORDERED: cefTRIAXone SODIUM 1 GM VIAL ONE (14:52)
[2024-06-11] MEDS: CEFTRIAXONE 1,000 MG in DEXTROSE 5%-WATER - 50 ML IVPB ONE (15:00)
== END 2024-06-11 15:20 | disposition home or self-care (01) ==
LOC: FER 12:05
PROC: 3E03329 Introduction of Other Anti-infective into Peripheral Vein, Percutaneous Approach (ICD-10-PCS; principal; 2024-06-11)
PROC: 3E033NZ Introduction of Analgesics, Hypnotics, Sedatives into Peripheral Vein, Percutaneous Approach (ICD-10-PCS; 2024-06-11)
DX: N30.00 Acute cystitis without hematuria (principal); R10.84 Generalized abdominal pain; R35.0 Frequency of micturition; R68.83 Chills (without fever); R14.0 Abdominal distension (gaseous); Z20.822 Contact with and (suspected) exposure to COVID-19
CPT/HCPCS: 0241U-QW; 36415; 74177-TC; 80053; 81003; 81015; 83690; 83735; 84100; 85027; 85610; 85730; 87086; 87186; 96365; 96374; 99285-25; J0131; Q9967

== ENCOUNTER 2024-08-22 10:12 | Emergency (ER) | payer OTHER, BC ==
[2024-08-22 10:31] VITALS: BP 145/92; PULSE 88; RESP 16; TEMP 98.8; BMI 24.5
[2024-08-22 11:09] LABS: EPITHELIAL CELLS 0-5 /hpf
[2024-08-22] MEDS ORDERED: ACETAMINOPHEN 500 MG TABLET (FP) ONE (11:45)
[2024-08-22] MEDS: ACETAMINOPHEN 500 MG TABLET (FP) PO ONE (11:47)
[2024-08-22 12:00] LABS: HEMATOCRIT 36.9 % (32.4-45.2); HEMOGLOBIN 11.8 G/dL (10.7-15.3); INR 1.04 (0.83-1.09); MCH 31.2 pg (25.7-33.7); MCHC 32.1 g/dl (32.0-36.0); MEAN CELL VOLUME 97.3 fl (80-96); MEAN PLT VOLUME 9.1 fl (7.5-11.1); PROTHROMBIN TIME (PATIENT) 11.8 SEC (9.7-13.0); RBC 3.79 10^6/uL (3.60-5.2); RDW 13.8 % (11.6-15.6); WHITE BLOOD COUNT 5.8 10^3/uL (4.0-10.8)
[2024-08-22 12:03] LABS: ACTIVATED PTT 34.3 SECONDS (25.2-36.5)
[2024-08-22 12:13] LABS: ALBUMIN 4.2 g/dl (3.4-5.0); ALK PHOS 111 U/L (45-117); ANION GAP 8 mmol/L (4-13); BILIRUBIN,TOTAL 0.4 mg/dl (0.2-1); CALCIUM 9.2 mg/dl (8.5-10.1); CHLORIDE 103 mmol/L (98-107); CO2 27 mmol/L (21-32); CREATININE 0.8 mg/dl (0.6-1.3); GLUCOSE,RANDOM 100 mg/dl (74-106); POTASSIUM 3.4 mmol/L (3.5-5.1); SGOT/AST 12 U/L (15-37); SGPT/ALT 6 U/L (7-52); SODIUM 138 mmol/L (136-145); TOT PROT 6.8 g/dl (6.4-8.2)
[2024-08-22] MEDS: MAG HYDROX/AL HYDROX/SIMETH 30 ML UNIT-DOSE CUP PO ONE (12:25)
[2024-08-22] MEDS ORDERED: MAG HYDROX/AL HYDROX/SIMETH 30 ML UNIT-DOSE CUP ONE (12:27)
[2024-08-22] MEDS ORDERED: FAMOTIDINE 20 MG/50 ML IVPB 20 MG/50 ML MG IVPB ONE (12:27)
[2024-08-22] MEDS: LACTATED RINGERS SOLUTION 1000 ML INFUS.BAG IV ONE (12:30)
[2024-08-22] MEDS: FAMOTIDINE 20 MG/50 ML IVPB 20 MG/50 ML MG IVPB ONE (12:30)
[2024-08-22 12:52] LABS: PLATELET ESTIMATE ADEQUATE
[2024-08-22] MEDS ORDERED: KETOROLAC TROMETHAMINE 15 MG/ML VIAL ONE (13:18)
[2024-08-22] MEDS: KETOROLAC TROMETHAMINE 15 MG/ML VIAL IVPUSH ONE (13:20)
[2024-08-22] MEDS: morphine CARPU-JECT 8 MG/1 ML DISP.SYRIN IVPUSH ONE ×2 (14:55→15:42)
[2024-08-22] MEDS ORDERED: LIDOCAINE 5% TOPICAL PATCH ONE (15:45)
[2024-08-22] MEDS: LIDOCAINE 5% TOPICAL PATCH TP ONE (15:47)
[2024-08-22] MEDS ORDERED: LIDOCAINE PATCH REMOVAL MC SCH (22:00)
== END 2024-08-22 16:23 | disposition home or self-care (01) ==
LOC: FER 10:12
PROC: 3E033NZ Introduction of Analgesics, Hypnotics, Sedatives into Peripheral Vein, Percutaneous Approach (ICD-10-PCS; principal; 2024-08-22)
PROC: 3E0333Z Introduction of Anti-inflammatory into Peripheral Vein, Percutaneous Approach (ICD-10-PCS; 2024-08-22)
DX: M47.816 Spondylosis without myelopathy or radiculopathy, lumbar region (principal); R35.0 Frequency of micturition
CPT/HCPCS: 36415; 74177-TC; 80053; 81003; 81015; 83690; 85027; 85610; 85730; 87086; 99285-25

== ENCOUNTER 2025-02-04 17:15 | Inpatient (IN) | payer OTHER, BC ==
[2025-02-04] MEDS ORDERED: FAMOTIDINE 20 MG/50 ML IVPB 20 MG/50 ML MG IVPB ONE (18:25)
[2025-02-04] MEDS ORDERED: ACETAMINOPHEN INJECTION 100 ML ONE (18:25)
[2025-02-04] MEDS: ACETAMINOPHEN 1000 MG/100 ML BAG IVPB ONE (18:34)
[2025-02-04 18:40] LABS: HEMATOCRIT 32.2 % (32.4-45.2); MCH 32.4 pg (25.7-33.7); MCHC 34.3 g/dl (32.0-36.0); MEAN CELL VOLUME 94.8 fl (80-96); MEAN PLT VOLUME 9.6 fl (7.5-11.1); PLATELET COUNT 196.2 10^3/uL (134-434); WHITE BLOOD COUNT 11.5 10^3/uL (4.0-10.8)
[2025-02-04 18:52] LABS: INR 1.2 (0.83-1.09); PROTHROMBIN TIME (PATIENT) 13.6 SEC (9.7-13.0)
[2025-02-04 18:55] LABS: ACTIVATED PTT 31.6 SECONDS (25.2-36.5)
[2025-02-04 18:57] LABS: EPITHELIAL CELLS 0-5 /hpf
[2025-02-04 19:00] LABS: ALBUMIN 3.7 g/dl (3.4-5.0); BILIRUBIN,TOTAL 0.7 mg/dl (0.2-1); CALCIUM 8.7 mg/dl (8.5-10.1); CREATININE 0.9 mg/dl (0.6-1.3); MAGNESIUM 2.1 mg/dL (1.8-2.4); POTASSIUM 3.6 mmol/L (3.5-5.1); TOT PROT 6.2 g/dl (6.4-8.2)
[2025-02-04] MEDS: FAMOTIDINE 20 MG/50 ML IVPB 20 MG/50 ML MG IVPB ONE (19:00)
[2025-02-04 21:16] LABS: PLATELET ESTIMATE ADEQUATE
[2025-02-04] MEDS ORDERED: morphine SULFATE 4 MG/ML VIAL ONE (22:00)
[2025-02-04] MEDS: SODIUM CHLORIDE 1,000 ML IV ONE (22:12)
[2025-02-04] MEDS: morphine CARPU-JECT 4 MG/1 ML DISP.SYRIN IVPUSH ONE (22:13)
[2025-02-04] MEDS ORDERED: PIPERACILLIN/TAZOBACTAM 4.5 GM VIAL IVPB ONE (22:14)
[2025-02-04] MEDS: PIPERACILLIN/TAZOB 4.5 GM 4.5 GM in DEXTROSE 5%-WATER 100 ML IVPB ONE (22:19)
[2025-02-05] MEDS: DEXTROSE 5%-0.45% SALINE 1,000 ML IV SCH (00:15)
[2025-02-05 01:09] VITALS: BMI 26.2
[2025-02-05] MEDS: PANTOPRAZOLE SODIUM 40 MG VIAL IVPUSH ONE (02:14)
[2025-02-05 07:29] LABS: HEMOGLOBIN 10.1 G/dL (10.7-15.3); MCH 31.8 pg (25.7-33.7); MCHC 33.8 g/dl (32.0-36.0); MEAN PLT VOLUME 9.1 fl (7.5-11.1); PLATELET COUNT 178.9 10^3/uL (134-434); RBC 3.19 10^6/uL (3.60-5.2); RDW 14.2 % (11.6-15.6); WHITE BLOOD COUNT 11.2 10^3/uL (4.0-10.8)
[2025-02-05 07:56] LABS: CALCIUM 8.1 mg/dl (8.5-10.1); CREATININE 0.9 mg/dl (0.6-1.3); POTASSIUM 3.9 mmol/L (3.5-5.1)
[2025-02-05] MEDS: PIPERACILLIN/TAZOB 4.5 GM 4.5 GM in DEXTROSE 5%-WATER 100 ML IVPB SCH (09:47)
[2025-02-05] MEDS: HEPARIN NA (PORCINE) 5,000 UNITS/ML 1ML VIAL SQ SCH (10:46)
[2025-02-05] MEDS: ACETAMINOPHEN 1000 MG/100 ML BAG IVPB PRN (10:47)
[2025-02-05 13:30] LABS: ERYTHROCYTE SEDIMENTATION RATE 31 mm/hr (0-30)
[2025-02-06 08:16] LABS: HEMOGLOBIN 10.3 G/dL (10.7-15.3); MCHC 33.1 g/dl (32.0-36.0); MEAN CELL VOLUME 93.6 fl (80-96); MEAN PLT VOLUME 10.1 fl (7.5-11.1); PLATELET COUNT 199.6 10^3/uL (134-434); RBC 3.31 10^6/uL (3.60-5.2); RDW 14.2 % (11.6-15.6); WHITE BLOOD COUNT 7.9 10^3/uL (4.0-10.8)
[2025-02-06 08:30] LABS: ALBUMIN 3.4 g/dl (3.4-5.0); BILIRUBIN,TOTAL 0.5 mg/dl (0.2-1); CALCIUM 8.5 mg/dl (8.5-10.1); POTASSIUM 3.7 mmol/L (3.5-5.1); TOT PROT 5.8 g/dl (6.4-8.2)
[2025-02-06] MEDS: PIPERACILLIN/TAZOB 4.5 GM 4.5 GM in DEXTROSE 5%-WATER 100 ML IVPB SCH (21:08)
[2025-02-07] MEDS: PIPERACILLIN/TAZOB 4.5 GM 4.5 GM in DEXTROSE 5%-WATER 100 ML IVPB SCH (08:24)
[2025-02-07] MEDS: GABAPENTIN 100 MG CAPSULE PO ONE (08:25)
[2025-02-07] MEDS: ACETAMINOPHEN 1000 MG/100 ML BAG IVPB ONE (10:37)
[2025-02-07] MEDS: ACETAMINOPHEN 1000 MG/100 ML BAG IVPB PRN (15:56)
[2025-02-07] MEDS ORDERED: MAG HYDROX/AL HYDROX/SIMETH -MYLANTA- ORAL SUSPENSION PO ONE (20:27)
[2025-02-07] MEDS: LACTOBACILLUS ACIDOPHILUS 1 TABLET PO SCH (21:11)
[2025-02-07] MEDS: MAG HYDROX/AL HYDROX/SIMETH 30 ML UNIT-DOSE CUP PO ONE (21:12)
[2025-02-07] MEDS: MELATONIN 1 MG TABLET PO ONE (22:28)
[2025-02-08 09:15] LABS: ALBUMIN 3.4 g/dl (3.4-5.0); BILIRUBIN,TOTAL 0.3 mg/dl (0.2-1); CALCIUM 8.8 mg/dl (8.5-10.1); CREATININE 0.8 mg/dl (0.6-1.3); POTASSIUM 3.9 mmol/L (3.5-5.1); TOT PROT 5.9 g/dl (6.4-8.2)
[2025-02-08 10:41] LABS: BASO % 0.7 % (0-2.0); HEMATOCRIT 35.1 % (32.4-45.2); HEMOGLOBIN 11.5 GM/dL (10.7-15.3); LYMPH % 22.9 % (8-40); MCH 30.6 pg (25.7-33.7); MCHC 32.8 g/dl (32.0-36.0); MEAN CELL VOLUME 93.4 fl (80-96); MEAN PLT VOLUME 9.5 fl (7.5-11.1); MONO % 9.4 % (3.8-10.2); PLATELET COUNT 187 10^3/uL (134-434); RBC 3.76 M/mm3 (3.60-5.2); RDW 14.5 % (11.6-15.6); WHITE BLOOD COUNT 5.5 K/mm3 (4.0-10.0)
[2025-02-08] MEDS: MELATONIN 1 MG TABLET PO ONE (21:46)
[2025-02-08] MEDS: ACETAMINOPHEN 325 MG TABLET (FP) PO ONE (21:46)
[2025-02-09 09:14] VITALS: BP 122/67; PULSE 65; RESP 18; TEMP 99.7
== END 2025-02-09 12:05 | disposition home or self-care (01) | DRG 392 ==
LOC: FER 17:15 → FM/S 22:18 → UNDOADMIN 22:56
PROVIDERS: ADMIT Student in an Organized Health Care Education/Training Program
DX: K57.20 Diverticulitis of large intestine with perforation and abscess without bleeding (principal); I10 Essential (primary) hypertension; M54.9 Dorsalgia, unspecified; N18.9 Chronic kidney disease, unspecified; R10.9 Unspecified abdominal pain
CPT/HCPCS: 0241U-QW; 36415; 71046-TC-FY; 74177-TC; 80048; 80053; 81003; 81015; 83690; 83735; 84484; 85025; 85610; 85651; 85730; 86140; 87086; 93005; 99285-25; J0131; J1644; Q9967